=== PATIENT | male | born 2000 | race Asian ===

== ENCOUNTER 2019-09-27 16:14 | Emergency (ER) | payer BC ==
--- NOTE | 2019-09-27 16:29 | ED ---
Complex/Multi-Sys Presentation - HPI Summary HPI Summary: 18 year [facility] was brought in for an episode of intoxication that resulted in a fall with a laceration on the head per EMS. EMS states patient didn't know what month it was or how much he drank. He was responsive to his name. Patient denies drug use. Patient denies complaints. Patient is concerned about his parents who live in [place]. - History Of Current Complaint Time Seen by Provider: 09/27/19 16:17 Hx Obtained From: Patient Onset/Duration: Lasting Minutes, Still Present Timing: Constant Aggravating Factor(s): nothing Alleviating Factor(s): nothing Associated Signs And Symptoms: Positive: Other - positive - intoxication, abrasion on head. - Allergies/Home Medications Home Medications: Home Medications Unobtainable 09/27/19 [History Confirmed 09/27/19] PMH/Surg Hx/FS Hx/Imm Hx - Additional Comments History Additional Comments: LEVEL 5 CAVEAT: PMHx/SHx/FHx/SocHx is limited because of intoxication. Review of Systems - ROS Summary Review of Systems Summary: LEVEL 5 CAVEAT: ROS is limited because of intoxication. Positive: Other - intoxication Skin: Other - abrasion on head All Other Systems Reviewed And Are Negative: No Physical Exam - Summary Physical Exam Summary: LEVEL 5 CAVEAT: PE is limited because of intoxication. Constitutional: Well-developed, Intoxicated Skin: Warm, Dry, abrasion occiput HENT: Normocephalic; abrasion occiput. Midface stable. Dentition intact. No cspine TTP Eyes: Conjunctiva normal Neck: Musculoskeletal ROM normal neck. (-) JVD, (-) Stridor Cardio: Rhythm regular, rate normal, Heart sounds normal; Intact distal pulses; Radial pulses are 2+ and symmetric. (-) Murmur Pulmonary/Chest wall: Effort normal. (-) Respiratory distress, (-) Wheezes, (-) Rales Abd: Soft, (-) tenderness, (-) Distension, (-) Guarding, (-) Rebound Musculoskeletal: (-) Edema Lymph: (-) Cervical adenopathy Neuro: Alert, Oriented x2. Intoxicated Psych: Cooperative Triage Information Reviewed: Yes Vital Signs Reviewed: Yes Procedures - Sedation Patient Received Moderate/Deep Sedation with Procedure: No Diagnostics - Laboratory Lab Statement: Any lab studies that have been ordered have been reviewed, and results considered in the medical decision making process. - CT CT Brain CT Interpretation Completed By: Radiologist Summary of CT Findings: IMPRESSION: No CT evidence of acute traumatic injury or other acute intracranial. abnormality. has reviewed this report. Complex Multi-Symp Course/Dx Course Of Treatment: 18-year-old male presented for acute alcohol intoxication. Alcohol level 411. CT brain obtained in the setting of head trauma, negative. No other trauma noted. Patient UTD tetanus. Patient pending sobriety - Diagnoses Provider Diagnoses: Alcohol intoxication, Fall Discharge ED - Sign-Out/Discharge Documenting (check all that apply): Sign-Out Patient Signing out patient TO: Oneida Barone - pending sobriety - Discharge Plan Patient Education Materials: Alcohol Intoxication (ED) Referrals: [facility] - [facility] [Primary Care Provider] - Additional Instructions: You were seen in the emergency department for alcohol intoxication. Please don' t drink and drive. It was a pleasure taking care of you today. - Attestation Statements Document Initiated by Scribe: Yes Documenting Scribe: Luis Alberto Coughlin Provider For Whom Jayne is Documenting (Include Credential): Dr.Caelyn Gurjit Mccartney MD Scribe Attestation: I, gretchen Weldonibed for Dr.Caelyn Gurjit Mccartney MD on 09/27/19 at 1823. Scribe Documentation Reviewed: Yes Provider Attestation: The documentation as recorded by the Luis Alberto solano accurately reflects the service I personally performed and the decisions made by me, Dr.Caelyn Gurjit Mccartney MD Status of Scribe Document: Viewed
--- NOTE | 2019-09-27 19:20 | ED ---
Progress - Progress Note Progress Note: The patient is a sign-out from Dr. Chavez Mccartney MD, to Dr. Oneida Barone MD, at change of shift at 1900 on 09/27/19, pending sobriety and discharge. Serum alcohol redrawn. Improved from 411 to 351. Patient becoming aggressive with staff, throwing phone. Ativan PO administered. Patient is clinically sober. He is awake, alert, ambulating well. He is safe for discharge. Re-Evaluation - Re-Evaluation First Eval Re-Evaluation Time: 21:40 Comment: Patient aggravated, throwing phone. Ativan administered. Second Eval Re-Evaluation Time: 05:20 Comment: Clinically sober, awake, alert, ambulating well. Safe for discharge. Course/Dx - Course Course Of Treatment: Patient received Ativan after becoming aggressive with staff, throwing phone. - Diagnoses Provider Diagnoses: Alcohol intoxication, Fall Discharge ED - Sign-Out/Discharge Documenting (check all that apply): Patient Departure - Patient will be discharged home., Receiving Sign-Out Receiving patient FROM: Chavez Mccartney - Patient is a sign-out from Dr. Chavez Mccartney MD, at change of shift at 1900 on 09/27/19, pending sobriety and discharge. - Discharge Plan Condition: Stable Disposition: HOME Patient Education Materials: Alcohol Intoxication (ED) Referrals: [facility] - [facility] [Primary Care Provider] - 3 Days Additional Instructions: You were seen in the emergency department for alcohol intoxication. Please don' t drink and drive. It was a pleasure taking care of you today. - Billing Disposition and Condition Condition: STABLE Disposition: Home - Attestation Statements Document Initiated by Scribe: Yes Documenting Scribe: Berta Carter Provider For Whom Jayne is Documenting (Include Credential): Oneida Barone MD Scribe Attestation: Berta Handley, scribed for Oneida Barone MD on 09/28/19 at 0641. Scribe Documentation Reviewed: Yes Provider Attestation: The documentation as recorded by the Berta solano accurately reflects the service I personally performed and the decisions made by me, Oneida Barone MD Status of Scribe Document: Viewed Procedures - Sedation Patient Received Moderate/Deep Sedation with Procedure: No
[2019-09-27 20:31] LABS: Urine Benzodiazepine Screen None Detected (None Detect); Urine Opiates Screen None Detected (None Detect)
[2019-09-27] MEDS ORDERED: LORazepam TAB(*) 1 MG PO ONE (21:42)
[2019-09-28 05:38] VITALS: BP 121/73
== END 2019-09-28 05:37 | disposition home or self-care (01) ==
LOC: ED 16:14
DX: F10.929 Alcohol use, unspecified with intoxication, unspecified (principal); W19.XXXA Unspecified fall, initial encounter; Y92.9 Unspecified place or not applicable
CPT/HCPCS: 36415; 70450; 80307; 80320; 99282; A9270-GY; G0480